=== PATIENT | female | born 1980 | race Two or more races ===

== ENCOUNTER 2016-10-12 18:51 | Emergency (ER) | payer OTHER ==
[2016-10-12 18:57] VITALS: TEMP 98; BMI 22.3
--- NOTE | 2016-10-12 19:22 | PDOC ---
History of Present Illness - General Chief Complaint: Rash Stated Complaint: Hives ALL ON THE BODY Time Seen by Provider: 10/12/16 19:10 History Source: Patient Exam Limitations: No Limitations - History of Present Illness Initial Comments: 10/12/16 21:05 MY CHIEF COMPLAINT: HIVES GENEALIZED COMES AND GOES HISTORY OF PRESENT ILLNESS: PT. IS A 36 Y/O FEMALE WITH NO SIGNIFICANT MEDICAL ISSUES HERE TODAY WITH HIVES THAT HAVE BEEN INTERMITTENT BUT DAILY SINCE . PT REPORTS THAT ON THAT DAY SHE WOKE WITH HIVES ON HER FACE. SHE DENIES ANY NEW MEDICATIONS, COSMETICS, DETERGENTS SOAPS OR MEDICATIONS. SHE WENT TO URGENT CARE ON 10/08/16 AND WAS STARTED ON PREDNISONE 20 MG BID RASH PERSISTED. SHE THAN WENT TO [facility] AND WAS TOLD TO STOP PREDNISONE AND WAS GIVEN RX FOR TRIAMINOCOLONE CREAM AND RASH PERSISTED. PT. DENIES EVER HAVING ANY DIFFICULTY BREATHING OR SWALLOWING. PT. DENIES ANY FEVER OR JOINT PAIN. 10/12/16 21:10 10/12/16 21:19 10/12/16 21:19 10/12/16 22:56 Timing/Duration: getting worse Severity: moderate Past History - Past Medical History Allergies/Adverse Reactions: Allergies Allergy/AdvReac Type Severity Reaction Status Date / Time No Known Allergies Allergy Verified 10/12/16 18:57 Home Medications: Ambulatory Orders Hydroxyzine HCl [Atarax -] 25 mg PO Q6H PRN #30 tablet 10/12/16 Loratadine [Claritin -] 10 mg PO DAILY #14 tablet 10/12/16 Ranitidine [Zantac -] 150 mg PO BID #24 tablet 10/12/16 - Psycho/Social/Smoking Cessation Hx Suicidal Ideation: No Smoking History: Never smoked Information on smoking cessation initiated: No Review of Systems - Review of Systems Able to Perform ROS?: Yes Constitutional: No: Symptoms Reported HEENTM: No: Symptoms Reported Respiratory: No: Symptoms reported Cardiac (ROS): No: Symptoms Reported ABD/GI: No: Symptoms Reported : No: Symptoms Reported Musculoskeletal: No: Symptoms Reported Integumentary: Yes: Pruritus, Rash (HIVES THAT WAX AND WANE SINE 10/04/16 ) Neurological: No: Symptoms reported *Physical Exam - Vital Signs Last Vital Signs Temp Pulse Resp BP Pulse Ox 98 F 99 H 18 141/83 100 07/18/17 18:54 10/12/16 18:54 10/12/16 18:54 10/12/16 18:54 10/12/16 18:54 - Physical Exam General Appearance: Yes: Appropriately Dressed HEENT: positive: TMs Normal, Pharyngeal Erythema. negative: Tonsillar Exudate, Tonsillar Erythema, Nasal Congestion, Rhinorrhea, Sinus Tenderness Neck: negative: Lymphadenopathy (R), Lymphadenopathy (L) Respiratory/Chest: positive: Lungs Clear, Normal Breath Sounds. negative: Chest Tender, Respiratory Distress Cardiovascular: positive: Regular Rhythm, Regular Rate, S1, S2 Integumentary: positive: Hives (RIGHT DORSAL HAND, B/L FOREARMS DORSAL, LEFT SHOULDER, RT BUTTOCK LEFT POSTERIOR THIGH, B/L MEDIAL DISTAL THIGHS ) Neurologic: positive: Fully Oriented, Alert, Normal Response, Respond to painful stimul, Responsive Medical Decision Making - Medical Decision Making 10/12/16 21:14 PT. IS A 36 Y/O FEMALE WITH NO SIGNIFICANT MEDICAL ISSUES HERE TODAY WITH HIVES THAT HAVE BEEN INTERMITTENT BUT DAILY SINCE 10/04/16. PT REPORTS THAT ON THAT DAY SHE WOKE WITH HIVES THAT WERE PRURITIC ON HER FACE NOT ON LIPS. SHE DENIES ANY NEW MEDICATIONS, COSMETICS, DETERGENTS SOAPS OR MEDICATIONS. SHE WENT TO URGENT CARE ON 10/08/16 AND WAS STARTED ON PREDNISONE 20 MG BID RASH PERSISTED. SHE THAN WENT TO [facility] AND WAS TOLD TO STOP PREDNISONE AND WAS GIVEN RX FOR TRIAMINOCOLONE CREAM AND RASH PERSISTED. PT. DENIES EVER HAVING ANY DIFFICULTY BREATHING OR SWALLOWING. PRURITIC RASH WAXES AND WANES AND HAS NOT BEEN ON FACE SINCE 10/04/16 ON ARMS, BUTTOCK, LEGS ABDOMEN. 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 MURPHY'S 10/12/16 21:19 Pt was informed to that she received a medication that could cause the following symptoms: headache, chest pain, lightheadedness, dizziness, nausea, diarrhea palpitations, or any diarrhea. Any other of the above symptoms vital signs at 21:13 110/68 pulse 82 feeling better rash has lessened, less itchiness 10/12/16 23:05 Denies headache, chest pain, lightheadedness, dizziness, nausea, diarrhea palpitations, or any diarrhea. feeling better less rash , less itchiness vital signs 22:01 pm 108/64, pulse 78 10/12/16 23:[address] Mckoy attending to report that pt. received hydralazine 25 mg po instead of hydroxyzine 25 mg po and gave her the pts vital signs and that pt was told that she got a medication that could lower her blood pressure and cause headache, chest pain, lightheadedness, dizziness, nausea, diarrhea palpitations, or any diarrhea and that pt. would be sent home with instructions to return if any of the above mentioned symptoms occured 10/12/16 23:13 *DC/Admit/Observation/Transfer Diagnosis at time of Disposition: Urticaria, acute - Discharge Dispostion Disposition: HOME Condition at time of disposition: Stable - Prescriptions Prescriptions: Hydroxyzine HCl [Atarax -] 25 mg PO Q6H PRN #30 tablet PRN Reason: For Itching Loratadine [Claritin -] 10 mg PO DAILY #14 tablet Ranitidine [Zantac -] 150 mg PO BID #24 tablet - Referrals Referrals: Johny Murphy MD [Staff Physician] - - Patient Instructions Additional Instructions: Follow-up with Dr. Murphy for allergy testing as soon as possible Return to emergency room if any difficulty breathing, chest discomfort or difficulty swallowing, headache, dizziness, lightheadedness, palpitations, or any diarrhea Any other symptoms develop Patient Voiced understanding of discharge instructions and all questions were answered
[2016-10-12] MEDS ORDERED: LORATADINE 10 MG TABLET PO ONE (19:56)
[2016-10-12] MEDS ORDERED: hydrALAZINE HCL 25 MG TABLET (FP) ONE (19:59)
[2016-10-12] MEDS ORDERED: LORATADINE 10 MG TABLET ONE (20:15)
[2016-10-12] MEDS ORDERED: RANITIDINE HCL 150 MG TABLET (FP) PO ONE (21:05)
[2016-10-12] MEDS ORDERED: RANITIDINE HCL 150 MG TABLET (FP) ONE (21:11)
[2016-10-12 22:02] VITALS: BP 108/64; PULSE 90
[2016-10-12] MEDS ORDERED: AZITHROMYCIN 250 MG TABLET (FP) PO ONE (22:55)
== END 2016-10-12 23:03 | disposition home or self-care (01) ==
LOC: EDBD → JERFT 18:51
DX: L50.9 Urticaria, unspecified (principal)
CPT/HCPCS: 84703; 87070; 87430; 99281-25

== ENCOUNTER 2017-02-07 12:31 | Emergency (ER) | payer OTHER ==
[2017-02-07 12:37] VITALS: BP 147/77; PULSE 82; TEMP 98.1; BMI 22.3
--- NOTE | 2017-02-07 14:02 | PDOC ---
History of Present Illness - General Chief Complaint: Injury Stated Complaint: INJURY Time Seen by Provider: 02/07/17 13:31 History Source: Patient Exam Limitations: No Limitations - History of Present Illness Initial Comments: 02/07/17 13:58 36 yr female with c/o left foot pain after a child stepped on her foot this morning. Occurred: reports: this morning Severity: Yes: mild Lower Extremity Pain Location: left: foot, ankle (laterally ) Method of Injury: Yes: direct blow (stepped on her foot at work ) Past History - Past Medical History Allergies/Adverse Reactions: Allergies Allergy/AdvReac Type Severity Reaction Status Date / Time No Known Allergies Allergy Verified 02/07/17 12:33 Home Medications: Ambulatory Orders NK [No Known Home Medication] 02/07/17 COPD: No Other medical history: ALLERGIES - Suicide/Smoking/Psychosocial Hx Smoking History: Never smoked Information on smoking cessation initiated: No Hx Alcohol Use: No Drug/Substance Use Hx: No Substance Use Type: None *Physical Exam - Vital Signs Last Vital Signs Temp Pulse Resp BP Pulse Ox 98.1 F 82 18 147/77 100 02/07/17 12:34 02/07/17 12:34 02/07/17 12:34 02/07/17 12:34 02/07/17 12:34 - Physical Exam General Appearance: Yes: Nourished, Appropriately Dressed HEENT: positive: EOMI, MADHURI Musculoskeletal: positive: Normal Inspection Extremity: positive: Normal Capillary Refill, Normal Inspection, Normal Range of Motion, Tender (ttp at base of left foot the 5th metatarsal, and lateral ankle. no swelling or deformity ) Integumentary: positive: Normal Color, Dry, Warm Neurologic: positive: Fully Oriented, Alert, Normal Mood/Affect, Normal Response , Motor Strength 5/5 ED Treatment Course - ADDITIONAL ORDERS Additional order review: Laboratory Results 02/07/17 13:24 Urine HCG, Qual Negative Medical Decision Making - Medical Decision Making 02/07/17 14:00 cc: left foot and ankle pain after a child "stomped" on her left foot this am at work. pt was wearing black boots. will xray to r/o fracture pt refused pain meds at this time. 02/07/17 14:07 *DC/Admit/Observation/Transfer Diagnosis at time of Disposition: Sprain of foot Qualifiers: Encounter type: initial encounter Laterality: left Qualified Code(s): S93.602A - Unspecified sprain of left foot, initial encounter - Discharge Dispostion Disposition: HOME Condition at time of disposition: Good - Referrals Referrals: Joni Harvey MD [Staff Physician] - - Patient Instructions Additional Instructions: elevate and apply ice every 2hrs for 20 minutes for the next 2 days take motrin or tylenol for pain as needed follow with the orthopedist if symptoms worsen or persist - Post Discharge Activity Forms/Work/School Notes: Back to School, Back to Work
== END 2017-02-07 14:35 | disposition home or self-care (01) ==
LOC: JERFT 12:31
DX: S93.602A Unspecified sprain of left foot, initial encounter (principal); W50.0XXA Accidental hit or strike by another person, initial encounter; Y93.89 Activity, other specified; Y92.219 Unspecified school as the place of occurrence of the external cause; Y99.0 Civilian activity done for income or pay
CPT/HCPCS: 73610-TC-LT; 73630-TC-LT; 84703; 99281-25